=== PATIENT | male | born 1975 | race African-American/Black ===

== ENCOUNTER 2017-08-24 18:59 | Emergency (ER) | payer OTHER ==
[2017-08-24] MEDS ORDERED: ACETAMINOPHEN 325 MG TABLET PO ONE (20:10)
[2017-08-24] MEDS ORDERED: HYDROCODONE/ACETAMINOPHEN 5-325 MG TABLET PO ONE (21:29)
[2017-08-24] MEDS ORDERED: DIPH/PERTUSS(ACELL)/TETANUS VAC/PF 0.5 ML SYR (>=10YO) IM ONE (21:31)
--- NOTE | 2017-08-24 21:32 | ER Document Report ---
HPI - HPI Patient complains to provider of: fingetip cut Onset: Just prior to arrival Onset/Duration: Sudden Pain Level: 2 Context: 42 yo right handed male cut 4th right fingertip pad. Avulsion noted. Tetanus not current. Associated Symptoms: None Exacerbated by: Denies Relieved by: Denies - ROS ROS below otherwise negative: Yes Systems Reviewed and Negative: Yes All other systems reviewed and negative - CONSTITUTIONAL Constitutional: DENIES: Fever, Chills Past Medical History - General Information source: Patient - Social History Smoking Status: Never Smoker Chew tobacco use (# tins/day): No Frequency of alcohol use: Rare Drug Abuse: None Lives with: Family Family History: Reviewed & Not Pertinent Patient has suicidal ideation: No Patient has homicidal ideation: No - Past Medical History Cardiac Medical History: Reports: Hx Hypertension - doesn't take meds like he is supposed to Renal/ Medical History: Denies: Hx Peritoneal Dialysis Surgical Hx: Negative Vertical Provider Document - CONSTITUTIONAL Agree With Documented VS: Yes Exam Limitations: No Limitations General Appearance: No Apparent Distress - INFECTION CONTROL TRAVEL OUTSIDE OF THE [place] IN LAST 30 DAYS: No - NECK Neck: Supple - RESPIRATORY O2 Sat by Pulse Oximetry: 100 - MUSCULOSKELETAL/EXTREMETIES Musculoskeletal/Extremeties: MAEW, FROM, Tender - 6 mm oval avulsion off 4th left fingertip pad, 1-2 mm thick - NEURO Level of Consciousness: Awake, Alert, Appropriate Motor/Sensory: No Motor Deficit, No Sensory Deficit - DERM Integumentary: Laceration Course - Re-evaluation Re-evalutation: 08/24/17 21:35 heartrate is now 100, pt does not take BP meds, has no dr in area. I will give FP names so he can start tx. - Vital Signs Vital signs: Temp Pulse Resp BP Pulse Ox 98.2 F 121 H 16 199/128 H 100 08/24/17 19:16 08/24/17 19:16 08/24/17 19:16 08/24/17 19:16 08/24/17 19:16 Discharge - Discharge Clinical Impression: Fourth right finger tip avulsion, Elevated blood pressure reading Condition: Good Disposition: HOME, SELF-CARE Instructions: Avulsion Injury ([facility]), High Blood Pressure ([facility]), High Blood Pressure, Requiring Treatment ([facility]), Tetanus Immunization Given ([facility]) Additional Instructions: keep the wound elevated keep the dressing on for 2 days soak off and check the wound return to er any signs of infection see family practice dr for your hypertension Referrals: BENEDICT GONZALEZ DO [NO LOCAL MD] - Follow up as needed
[2017-08-24] MEDS ORDERED: HYDROCODONE/ACETAMINOPHEN 5-325 MG 6 TAB/DSPK PO PRN (21:38)
[2017-08-24] MEDS ORDERED: LIDOCAINE 1% INJ-PF (10 MG/ML) 30 ML SDV INJ ONE (21:49)
[2017-08-24 22:58] VITALS: BP 170/110
== END 2017-08-24 23:22 | disposition home or self-care (01) ==
LOC: ER 18:59
DX: S61.214A Laceration without foreign body of right ring finger without damage to nail, initial encounter (principal); W45.8XXA Other foreign body or object entering through skin, initial encounter; I10 Essential (primary) hypertension
CPT/HCPCS: 99283; 90471; 90715; J3490